=== PATIENT | female | born 1995 | race Caucasian/White ===

== ENCOUNTER 2020-11-19 17:44 | Outpatient (REF) | payer BC, SELFPAY ==
[2020-11-19 19:46] LABS: HCT 35.8 % (36.0-46.0); HGB 12.1 g/dL (11.2-15.7); MCH 29.7 pg (27.0-33.0); MCHC 33.8 % (32.0-36.0); MPV 10.6 fL (8.0-11.0); Platelet Count 247 10^3/uL (130-400); RBC 4.07 10^6/uL (3.93-5.22); RDW 12.4 % (11.7-14.6); RDW-SD 40.3 fL; WBC 6.64 10^3/uL (4.4-10.8)
[2020-11-19 20:10] LABS: FREE T4 0.84 ng/dL (0.76-1.46); TSH 1.38 uIU/mL (0.36-3.74)
== END 2020-11-19 17:45 | disposition home or self-care (01) ==
LOC: NCHCN 17:44
PROVIDERS: PCP Pediatrics; Visit Provider Physician Assistant
DX: R53.83 Other fatigue (principal)
CPT/HCPCS: 85027; 84439; 84443